=== PATIENT | female | born 1935 | race Caucasian/White ===

== ENCOUNTER 2019-10-07 19:25 | Inpatient (IN) | payer MEDICAID ==
[~2019-10-07] VITALS: Ht 154.9 cm; Wt 60.0 kg
[2019-10-07 19:40] VITALS: Ht 154.9 cm; Wt 60.0 kg
--- NOTE | 2019-10-07 19:56 | NUR ---
PT PRESENTS TO ED WITH C/O WOUND TO OUTSIDE OF L ANKLE. PT STATES THAT SHE HAS HAD THIS WOUND FOR APPROX 1 MONTH NOW. PT STATES THAT SHE WAS ON THE BUS AND SOMEONES PURSE FELL ON IT AND HAS HAD THE WOUND EVER SINCE. PT HAS GOLFBALL SIZED WOUND TO OUTSIDE OF L ANKLE. PT HAS YELLOW PUSS SEEN TO ANKLE WITH ALSO APPROX 2 CM OF DEPRESSION INTO WOUND. THERE IS ERYTHEMA NOTED TO THE CIRCUMFERENCE OF THE WOUND. PT SKIN IS NOT HOT, PT SKIN IS WNL BESIDES THE REDNESS AROUND THE WOUND AND DOWN TO THE DISTAL METATARSALS. PT DENIES ANY OTHER SXS HOWEVER JUST PAINFUL TO WALK ON. PT FAMILY WAS UNAWARE OF WOUND. PT DENIES DIABETES. PT AXO X4. PT SPEAKING IN CLEAR AND FULL SENTENCES. RESP E/U. PT AFEBRILE. NAD AT THIS TIME. FAMILY AT BEDSIDE
[2019-10-07] MEDS ORDERED: LEVOXYL0.088 MG PO (20:30)
[2019-10-07] MEDS ORDERED: HYDROCHLOROTH12.5 M2 PO (20:30)
--- NOTE | 2019-10-07 20:30 | NUR ---
PHOTO OF PT WOUND PLACED IN PT CHART AT THIS TIME
[2019-10-07] MEDS ORDERED: HYDROCHLOROTH12.5 M3 PO (20:31)
[2019-10-07] MEDS ORDERED: LOSARTAN POTASS25 M1 PO (20:35)
[2019-10-07 20:36] LABS: BASOPHIL % 0.8 % (0-2); PLATELET COUNT 243 x10^3mcL (130-400)
[2019-10-07 20:38] LABS: RED CELL DISTRIBUTION WIDTH 18.3 % (11.5-14.5)
[2019-10-07 20:48] LABS: CALCIUM 8.9 mg/dL (8.5-10.1); CARBON DIOXIDE 31.3 mmol/L (21-32); CHLORIDE SERUM 101 mmol/L (98-107); CREATININE SERUM 1.2 mg/dL (0.6-1.0); GLUCOSE SERUM 114 mg/dL (74-106); POTASSIUM SERUM 4.4 mmol/L (3.5-5.1); SODIUM SERUM 135 mmol/L (136-145)
[2019-10-07 20:53] LABS: ALBUMIN 3.4 g/dL (3.4-5.0); ALKALINE PHOSPHATASE 112 U/L (46-116); ALT/SGPT 19 U/L (14-59); AST/SGOT 16 U/L (15-37); BILIRUBIN TOTAL 0.5 mg/dL (0.20-1.00)
[2019-10-07 21:44] LABS: TOTAL PROTEIN, SERUM 7.1 g/dL (6.4-8.2)
--- NOTE | 2019-10-07 21:45 | NUR ---
PT ASSISTED TO RESTROOM VIA WHEELCHAIR BY ERT ENDY AT THIS TIME. NAD UPON TOILETING
--- NOTE | 2019-10-07 22:37 | NUR ---
REPORT CALLED TO SHERLYN GUERRIER. ALL QUESTIONS AND CONCERNS ADDRESSED AT THIS TIME
--- NOTE | 2019-10-07 22:38 | NUR ---
LAST NOTE MADE BY STEFANI TOLEDO RN
--- NOTE | 2019-10-07 22:59 | NUR ---
RECEIVED FROM ED,PUT IN ROOM 253 B AND MADE COMFORTABLE.FAMILY WITH HER,VALERI WILL ADMIT PATIENT,THANK YOU.REPORT FROM ER ALREADY TOOK PICTURE OF L ANKLE ALTERATION.CALL LIGHT IN REACH.
--- NOTE | 2019-10-07 23:19 | NUR ---
,MADE AWARE THAT BP HIGH ON ADMIT.DID NOT TAKE HER BP MEDS TODAY.
[2019-10-07 23:26] LABS: MAGNESIUM 2.2 mg/dL (1.8-2.4); PHOSPHOROUS 3.4 mg/dL (2.5-4.9)
[2019-10-07 23:29] VITALS: BP 177/113
[2019-10-07 23:48] LABS: FREE T4 1.04 ng/dL (0.76-1.46); FREE THYROXINE INDEX 2.9 ug/dL (1.4-4.5)
--- NOTE | 2019-10-07 23:50 | NUR ---
RECEIVED PT FROM ER, PT ADMIT FOR CELLULITIS LEFT LOWER EXTREMITY, DEHYDRATION. PT IS A/O X4, VERBAL RESPONSIVE, LUNG SOUND CLEAR BILATERAL, NO COUGH, NO SOB. PT DENY ANY CHEST PAIN OR DISCOMFORT, BOWEL SOUND PRESENT ALL 4 QUADRANTS, NO DISTENTION, NO TENDER. PEDAL PULSE PRESENT BOTH FEET, TRACE EDEMA BLE. THERE IS OPEN WOUND AT LEFT ANKLE. AND HEALING SCAB AT LEFT LOWER LEG. BLE RED DISCOLORATION. IV AT RIGHT AC, NO LEAKING, NO INFILTRATION. ALL ADLS ASSIST, ALL NEED MET, CALL LIGHT IN REACH, WILL CONTINUE TO MONITOR.
[2019-10-08] VITALS (7 sets, daily range): BP systolic 134–172; BP diastolic 59–106
[2019-10-08 00:58] LABS: T3 TOTAL 0.55 ng/mL
--- NOTE | 2019-10-08 02:47 | NUR ---
EKG FROM ER CRYSTAL MARTINEZ MADE AWARE AND NOTIFIED GINO ORDERED TELE 25 ASSIGNED.
--- NOTE | 2019-10-08 03:35 | NUR ---
BP STILL ELEVATED AT THIS TIME 155/100 MAP OF 104.WILL GIVE POPRESSOR ORDERED BY DR CHRISTIAN.TELE STILL AFIB 78.NO CHEST PAIN,DAUGHTER CLAIMED SHE DO NOT HAVE HX OF AFIB.CRYSTAL ALREADY AWARE.
--- NOTE | 2019-10-08 03:44 | NUR ---
MORE ORDERS NOTED AFTER PATIENT PUT ON TELE,AFIB.
--- NOTE | 2019-10-08 03:45 | NUR ---
PATIENT AND FAMILY CLAIMED THAT SHE IS NOT DIABETIC.
--- NOTE | 2019-10-08 04:00 | NUR ---
PATIENT HEART RATE LIZETH,AFIB.DOWN TO 40 PER SHERYL,CHECKED AT ONCE.AROUSED EASILY,WAS SOUND ASLEEP.UP TO 72 AT ONCE.PATIENT HAD BP MEDS EARLIER BP NOW 148/96.HEART RATE 72.WILL MONITOR PATIENT.
--- NOTE | 2019-10-08 04:39 | NUR ---
REMINDED LAB,THERE IS NO UA RESULT YET,URINE SENT A WHILE AGO AFTER ADMISSION.
[2019-10-08 04:41] LABS: microscopic required? NO
--- NOTE | 2019-10-08 05:08 | NUR ---
I AND O MEASURED.IVF NS AT 100 CC/ HOUR.ATB SCHEDULE WILL GIVE,NO INCIDENT AFTER FIRST DOSE GIVEN EARLIER.
[2019-10-08 05:13] LABS: urine erythrocyte NEGATIVE (NEGATIVE)
[2019-10-08 06:11] LABS: CALCIUM 8.6 mg/dL (8.5-10.1); CARBON DIOXIDE 31.1 mmol/L (21-32); CHLORIDE SERUM 102 mmol/L (98-107); GLUCOSE SERUM 94 mg/dL (74-106); MAGNESIUM 2.1 mg/dL (1.8-2.4); PHOSPHOROUS 3.3 mg/dL (2.5-4.9); SODIUM SERUM 138 mmol/L (136-145)
[2019-10-08 06:15] LABS: BASOPHIL % 0.5 % (0-2); PLATELET COUNT 233 x10^3mcL (130-400)
[2019-10-08 06:29] LABS: RED CELL DISTRIBUTION WIDTH 18.3 % (11.5-14.5)
--- NOTE | 2019-10-08 07:20 | NUR ---
RECEIVED PT'S REPORT FROM LEAVING NURSE. PT SEEN REST ON BED WITH HER DAUGHTER AT BEDSIDE. PT IS AA/O X 3, DENIED PAIN AT THIS TIME. PT BREATHING ON RA, EVEN, UNLABORED. L ANKLE RED, OPEN WOUND COVERED BY ISLAND DRESSING AT THIS TIME. RAC IV PATENT, INTACT, IVF IS INFUSING. PT AMBULATE WITH WALKER AND ASSIST. WILL CONTINUE PT'S CARE.
--- NOTE | 2019-10-08 09:32 | NUR ---
FLU AND PNA VACCINE GIVEN PER ORDER.
--- NOTE | 2019-10-08 10:16 | NUR ---
PODIATRIEST AT BEDSIDE ASSESSED PT'S WOUND AND PERFORMED DRESSING CHANGE.
--- NOTE | 2019-10-08 14:03 | NUR ---
MADE DR. GRIFFITH AWARE PT'S BP 172/106. NORVASAC 5MG IS GIVEN PER NEW ORDER TO MANAGE ELEVATED BP.
--- NOTE | 2019-10-08 14:42 | NUR ---
AFTER NORVASC 5MG GIVEN, RECHECKED PT'S BP 169/106. HR 90 BPM. PT DENIED RODRÍGUEZ. HYDRALAZINE 10MG PO GIVEN PER PRN ORDER SBP > 160.
--- NOTE | 2019-10-08 16:14 | NUR ---
RECHECK PT'S BP 148/86, HR 76. PT'S FAMILY MEMBERS AT BEDSIDE. PT NO COMPLAIN OF PAIN AT THIS TIME.
--- NOTE | 2019-10-08 20:00 | NUR ---
SHIFT REASSESSMENT DONE.PATIENT ALERT,MAINLY ITALIAN,NEEDS ANTICIPATED.3 FAMILY MEMBER AT BEDSIDE,SUPPORTIVE OF CARE.HEPLOCK INTACT,ATB SCHEDULED TONIGHT.NEW IV SITE FROM DAY SHIFT LFA.INTACT.CALL LIGHT IN REACH.
--- NOTE | 2019-10-08 22:35 | NUR ---
PATIENT PM MEDS GIVEN.ALSO GIVEN PAIN PILL A WHILE AGO.DAUGHTER STAYING FOR TONIGHT,SUPPORTIVE OF CARE.
--- NOTE | 2019-10-09 01:24 | NUR ---
PATIENT CALL FOR ASSISTANCE,DAUGHTER AT BEDSIDE.
--- NOTE | 2019-10-09 02:22 | NUR ---
PATIENT CHECKED AT INTERVALS FOR NEEDS AND SAFETY.
[2019-10-09 05:58] VITALS: BP 147/78
--- NOTE | 2019-10-09 05:59 | NUR ---
ASSISTED IN BSC,VOIDING MODERATE AMOUNT OF YELLOW URINE.GISSELLE GAVE AM CARE TO HER,PERICARE.HAS HER OLD UNDERWEAR,GISSELLE WILL GIVE HOSPITAL UNDERWEAR.NS FLUSH INTACT.ATB SCHEDULED.HEPLOCK INTACT LFA.
[2019-10-09 06:19] LABS: BASOPHIL % 0.5 % (0-2); PLATELET COUNT 184 x10^3mcL (130-400)
[2019-10-09 06:28] LABS: CALCIUM 8.3 mg/dL (8.5-10.1); CARBON DIOXIDE 28.1 mmol/L (21-32); CHLORIDE SERUM 99 mmol/L (98-107); GLUCOSE SERUM 87 mg/dL (74-106); MAGNESIUM 1.9 mg/dL (1.8-2.4); PHOSPHOROUS 2.9 mg/dL (2.5-4.9); POTASSIUM SERUM 3.8 mmol/L (3.5-5.1); SODIUM SERUM 134 mmol/L (136-145)
[2019-10-09 06:30] LABS: RED CELL DISTRIBUTION WIDTH 18.2 % (11.5-14.5)
[2019-10-09 08:02] VITALS: BP 153/89
--- NOTE | 2019-10-09 08:37 | NUR ---
AAO TIMES 4. TELE # 25 A FIB RATE 80'S. LUNGS CTA, DIMINISHED BASES. O2 SAT ON RA 94%. BS'S ACTIVE TIMES 4. COOPERATIVE. DRESSING TO LEFT FOOT CDI. TRACE EDEMA BLE. PEDAL PULSES WEAK. GOOD APPETITE.
[2019-10-09 11:59] VITALS: BP 150/84
[2019-10-09 16:16] VITALS: BP 133/60
--- NOTE | 2019-10-09 18:48 | NUR ---
AAO TIMES 4. FAMILY PRESENT, SUPPORTIVE. COOPERATIVE. NO C/O PAIN. NO SOB. IV SITE CDI. TELE # 25 A FIB. BRP/BSC ASSIST.
--- NOTE | 2019-10-09 19:32 | NUR ---
SHIFT REASSESSMENT DONE.PATIENT ALERT AND ORIENTED.MAINLY MALAY,NEEDS ANTICIPATED.FAMILY AT BEDSIDE,SUPPORTIVE OF CARE.IV FLUSH ONLY FOR ATB.BREATHING EASY.WALKER/ASSIST PRN.FALL PRECAUTION,TELE 25 AFIB,TROP NEGATIVE,HEPARIN SQ BID,TRACE EDEMA BLE.VENOUS US RESULT NEGATIVE.CALL LIGHT IN REACH.
--- NOTE | 2019-10-09 21:09 | NUR ---
HYDRALAZINE 10 MG BP 163/97.WILL RECHECKED IN 30 MINUTES.
[2019-10-09 21:47] VITALS: BP 138/87
--- NOTE | 2019-10-10 03:24 | NUR ---
PATIENT C/O LEG PAIN,GIVEN PAIN PILL AT 0234.HEPLOCK INTACT.WILL HAVE ATB AGAIN 6 AM SCHEDULE.
--- NOTE | 2019-10-10 05:31 | NUR ---
AM MED GIVEN ATB,ALSO THYROID MED WILL GIVE.IV SITE GOOD AND FLUSHES EASILY.
[2019-10-10 05:41] VITALS: BP 168/90
--- NOTE | 2019-10-10 05:59 | NUR ---
I AND O MEASURED.HEPLOCK INTACT.WILL ENDORSE TO NEXT SHIFT.
--- NOTE | 2019-10-10 06:25 | NUR ---
BP AT THIS TIME 168/98.WILL GIVE HYDRALAZINE.
[2019-10-10 06:43] LABS: BASOPHIL % 0.5 % (0-2); PLATELET COUNT 194 x10^3mcL (130-400)
--- NOTE | 2019-10-10 06:50 | NUR ---
PODIATRY AD OPERATIONS INTERN HERE.WILL DO TX MARTINE.PICTURE TAKEN.
--- NOTE | 2019-10-10 06:55 | NUR ---
PICTURE TAKEN.PUT IN CHART,PODIATRY DRESSED WOUND WITH RONNIE.
[2019-10-10 06:58] LABS: RED CELL DISTRIBUTION WIDTH 17.9 % (11.5-14.5)
[2019-10-10 07:12] VITALS: BP 156/71
[2019-10-10 07:21] LABS: CALCIUM 8.8 mg/dL (8.5-10.1); CARBON DIOXIDE 31.1 mmol/L (21-32); CHLORIDE SERUM 98 mmol/L (98-107); CREATININE SERUM 1.1 mg/dL (0.6-1.0); GLUCOSE SERUM 92 mg/dL (74-106); POTASSIUM SERUM 3.9 mmol/L (3.5-5.1); SODIUM SERUM 135 mmol/L (136-145)
--- NOTE | 2019-10-10 07:26 | NUR ---
BPO RECHECKED AFTER APRESOLINE 156/71.WILL ENDORSE TO CRYSTAL DOWNEY AWARE.
--- NOTE | 2019-10-10 07:46 | NUR ---
RECEIVED IN NO ACUTE RESP. DISTRESS. AWAKE, ALERT AND ORIENTED. EATING BREAKFAST. FAMILY AT BEDSIDE. NO C/O PAIN OR DISCOMFORT AT THIS TIME. DRESSING TO LLE CHANGED BY FIRE EQUIPMENT OPERATOR THIS AM, DRY AND INTACT. CALL LIGHT WITHIN REACH. WILL CONTINUE WITH PLAN OF CARE.
[2019-10-10 08:34] VITALS: BP 140/77
[2019-10-10 12:11] VITALS: BP 135/84
--- NOTE | 2019-10-10 15:05 | NUR ---
DR. KAN IN TO SEE PT, PLAN OF CARE DISCUSSSED WITH PT AND FAMILY. CONCERNS ADDRESSED.
--- NOTE | 2019-10-10 15:44 | NUR ---
Discount pharmacy card and list to low cost medical clinics given to patient by Artur.
[2019-10-10 16:36] VITALS: BP 122/64
--- NOTE | 2019-10-10 18:45 | NUR ---
PT REMAINS IN NO DISTRESS. AWAKE AND ALERT. NO C/O PAIN OR DISCOMFORT AT THIS TIME. NO CHANGES IN VS. FAMILY AT BEDSIDE. CALL LIGHT WITHIN REACH. WILL BE ENDORSED TO INCOMING SHIFT.
[2019-10-10 19:38] VITALS: BP 146/79
--- NOTE | 2019-10-10 20:20 | NUR ---
PT CURRENTLY RESTING IN BED, NO ACUTE DISTRESS. A/O X4. NO TELE, MED/SURG. DENIES CHEST PAIN. PULSES PALPABLE IN ALL EXTREMITIES, BLE TRACE EDEMA NOTED. LUNG SOUNDS CTA BILATERALLY, DENIES SOB. BOWEL SOUNDS ACTIVE, LAST BM 10/10/19. VOIDING WELL. GENERALIZED WEAKNESS, AMBULATORY WITH ASSIST. BLE SCABS, RONEY. LEFT ANKLE WOUND, DRESSING CHANGED BY PODIATRY CDI. PT STATES 5/10 LEFT ANKLE INTERMITTENT PAIN, REFUSING PAIN MEDICATION AT THIS TIME. IV PATENT AND INTACT. BED IN LOWEST POSITION, SIDE RAILS UP X2, CALL LIGHT WITHIN REACH. WILL CONTINUE TO MONITOR.
--- NOTE | 2019-10-10 23:16 | NUR ---
PT CURRENTLY RESTING IN BED, NO ACUTE DISTRESS. WILL CONTINUE TO MONITOR.
[2019-10-11 04:38] VITALS: BP 164/96
--- NOTE | 2019-10-11 06:42 | NUR ---
PT SLEPT PERIODICALLY THROUGHOUT NIGHT, NO ACUTE DISTRESS. ALL NEEDS MET AND ATTENDED TO. NO SIGNIFICANT CHANGES. IV PATENT AND INTACT. BED IN LOWEST POSITION, SIDE RAILS UP X2, CALL LIGHT WITHIN REACH. BP 164/96, MEDICATED PER EMAR. WILL ENDORSE CARE TO ONCOMING NURSE.
--- NOTE | 2019-10-11 07:15 | NUR ---
SEEN RESTING IN BED AAOX3. NO RESP DISTRESS NOTED. BREATHING E/U ON ROOM AIR. DAUGHTET AT BEDSIDE INTERPRETED FROM BELIZEAN TO FRISIAN. STATED MILD PAIN TO LLE ULCER, REFUSED PAIN MEDS OFFERRED. DSRG TO LEFT ANKLE NOTED CDI. BLE NOTED WITH DRY SCABS WITH DISCOLORATION. S/L TO LFA INTACT AND PATENT. CALL LIGHT PLACED WITHIN EASY REACH. SIDERAILS UP X2.
[2019-10-11 07:56] VITALS: BP 152/84
[2019-10-11 07:57] VITALS: BP 152/84
--- NOTE | 2019-10-11 08:04 | NUR ---
PHYSICAL THERAPY DAILY NOTES CO-SIGN All documentation done by the Parachute Inspector for 10/10/19 has been reviewed. I agree with the documentation. Reviewed/Co-Signed by: Debbi Conrad PT Documentation Done by:ADONAY JULIEN PTA
--- NOTE | 2019-10-11 08:22 | NUR ---
DENIES NAUSEA VOMITING, TOLERATED TO CARDIAC DIET WELL. AM SCHEDULED GIVEN.
--- NOTE | 2019-10-11 08:31 | NUR ---
DRIVE THRU ORDER TAKER STEFANI MCADAMS AT BEDSIDE FOR AM ROUND. PATIENT AND PATIENT'S DAUGHTER MADE AWARE OF CURRENT CONDITION AND PLAN OF CARE.
--- NOTE | 2019-10-11 10:39 | NUR ---
Initial Nutrition Assessment: 253/B SINGLE[place]LINDA HAQ IA HR Dx: Cellulitis L lower extremity, dehydration PMHx: HTN and hypothyroidism PSHx: None Labs: NA 135L, CREAT 1.1H Meds: Apresoline, aspirin, Colace, norco, Pepcid, synthyroid, vancomycin, Zofran, zosyn Diet: cardiac PO intake since admission: (10/10) breakfast 100%, (10/09) dinner, lunch 40%, breakfast 100%, (10/08) dinner 50%, breakfast 90% Ht: 154.94 cm (61") Wt: 60 kg (132#) BMI: 25 kg/m2 Bed scale: 132# IBW: 105# (48 kg) %IBW: 125 UBW: unable to access Age: 83/F Food Allergies: NKFA Skin: BLE scabs Tam: 21 Edema: BLE trace GI: Last BM: 10/10 Per H&P, Pt is a 83 yo F with PMH of HTN and hypothyroidism who came with cc of left leg pain since [address] Note (10/11): Patient was sleeping. Per RN Diandra, patient ate most of her breakfast this morning and does not have any N/V/D/C at this time. Patient had ulcer/ wound on leg. Problem with: N/V/D/C: none per RN Problems with: Chewing: Swallowing: none per RN Current appetite: unable to access Recent wt change: unable to access %wt change: n/a Vitamin/Supplement use: unable to access Special diet at home: unable to access Physical activity: unable to access Nutrition education given: not possible at this time Food-drug interactions: none Education given: n/a Estimated Nutritional Needs Based on current body weight (60 kg) Energy: 5026-4076 kcal/day (30-35 kcal/kg for geriatric maintenance, ulcer) Protein: 72-84 g/day (1.2-1.4 g/kg for leg ulcer healing) Fluid: 1744-5806 mL/day (1 mL/kcal) Nutrition Diagnosis: 1. Increased nutrient needs related to increased metabolic demands as evidenced by leg ulcer/ wound. Intervention 1. Recommend continuing cardiac diet. 2. Recommend ONS Ensure High protein. This will provide additional 320 kcal and 32 g protein. 3. Recommend Vitamin C and zinc for wound healing. Discussed with KAIN Turner. Monitor/Evaluate Goal: PO intake at least 75% of estimated needs Monitor: PO intake, Labs, GI function F/U in 2-3 days as high risk 10/13-
--- NOTE | 2019-10-11 11:25 | NUR ---
WOUND CARE EVALUATION NOTE: PT. SEEN AND HAS BEEN FOLLOW UP WITH DR. LUNDY IN [facility], PER DOCTOR'S NOTE " Will continue to perform daily dressing changes with Betadine, Adaptic, 4x4 gauze, Kerlix and GENNA. Possible switch to MediHoney. Dressing changes will be performed by podiatry. " WOUND CARE TEACHING GIVEN PER KAIN KO, REQUEST. CHEY CULLEN TRANSLATE IN [place], PT. VERBALIZES UNDERSTAND, ALSO, PRIMARY RN TO CONTINUE INSTRUCT PT. AND FAMILY FOR WOUND CARE. PER PT. HER DAUGHTER IS COMING THIS AFTERNOON AFTER WORK AND PRIMARY RN WILL FOLLOW UP WOUND CARE TEACHING.
[2019-10-11 12:08] VITALS: BP 131/79
--- NOTE | 2019-10-11 14:24 | NUR ---
SEEN WALKING ON THE HALLWAY USING WALKER ACCOMPANIED PHYSICAL THERAPISTS. NO ANY DISTRESS NOTED.
[2019-10-11 17:23] VITALS: BP 138/91
--- NOTE | 2019-10-11 17:54 | NUR ---
NO ANY DISTRESS THROUGHOUT SHIFT. STATED PAIN TO LLE ULCER TOLERABLE. DRSG TO LLE DRY/INTACT. USED BSC WITH ASSISTANCE. ALL NEEDS ATTENDED. S/L TO LFA INTACT AND PATENT. DAUGHTER STAYS AT BEDSIDE.
[2019-10-11 20:28] VITALS: BP 140/74
--- NOTE | 2019-10-11 22:13 | NUR ---
RECIEVED PT FROM PREVIOUS SHIFT NURSE. PT A0X4. RR EVEN AND UNLABORED, NO SIGNS OF ACUTE DISTRESS OR PAIN. IV RH PATENT AND CDI. BED IN LOWEST POSITION AND CALL LIGHT WITHIN REACH. WILL CONTINUE TO MONITOR. SON AT BED SIDE
--- NOTE | 2019-10-12 01:10 | NUR ---
PT RESTING IN BED. RR EVEN AND UNLABORED, NO SIGNS OF ACUTE DISTRESS. BED IN LOWEST POSITION AND CALL LIGHT WITHIN REACH. WILL CONTINUE TO MONITOR.
[2019-10-12 05:26] VITALS: BP 151/85
[2019-10-12 07:19] LABS: BASOPHIL % 1.2 % (0-2); PLATELET COUNT 202 x10^3mcL (130-400)
[2019-10-12 07:24] LABS: CALCIUM 9.2 mg/dL (8.5-10.1); CARBON DIOXIDE 31.9 mmol/L (21-32); CHLORIDE SERUM 98 mmol/L (98-107); CREATININE SERUM 1.1 mg/dL (0.6-1.0); GLUCOSE SERUM 85 mg/dL (74-106); POTASSIUM SERUM 3.8 mmol/L (3.5-5.1); SODIUM SERUM 135 mmol/L (136-145)
[2019-10-12 07:28] LABS: RED CELL DISTRIBUTION WIDTH 17.8 % (11.5-14.5)
--- NOTE | 2019-10-12 07:30 | NUR ---
PATIENT IS A&OX4, AND FOLLOWS COMMADNS WELL. MEDSURG PATIENT, DENIES CHEST PAIN. PERIPHERAL PULSES PALPABLE W/ TRACE EDEMA ON LLE. LUNG SOUNDS CTA BILATERALLY, ON RA, O2 SAT 93%. NORMAOCTIVE BSX4. VOIDS WELL. GENERALIZED WEAKNESS, BUT IS WORKING WITH PT. LEFT ANKLE DRESSING IS CDI. DENIES ANY PAIN OR DISCOMFORT AT THIS TIME. LFA IV SITE IS CDI. COOPERATES WELL, AND IS DANISH SPEAKING. DAUGHTER IS PRESENT AT THIS TIME.
[2019-10-12 08:56] VITALS: BP 135/72
[2019-10-12 12:45] VITALS: BP 129/95
[2019-10-12] MEDS ORDERED: CLEOCIN HCL300 MG PO (13:41)
[2019-10-12] MEDS ORDERED: XARELTO15 M1 PO (13:48)
[2019-10-12] MEDS ORDERED: NOR5 PO (13:55)
[2019-10-12 14:26] VITALS: BP 129/95
--- NOTE | 2019-10-12 15:55 | NUR ---
PATIENT HAS RECEIVED DISCAHRGE INSTRUCTIONS. PATIENT AND AFMILY VERBALIZE UNDERSTANDING OF PATIENT'S INSTRUCTIONS. ALL QUESTIONS AND CONCERNS HAVE BEEN ADDRESSED. IV CATHETER HAS BEEN DC. CATHETER IS INTACT. PATIENT DENIES ANY PAIN OR DISCOMFORT AT THIS TIME. PATIENT WILL BE DISCAHRGED VIA WHEELCHAIR WITH [employer] AND FAMILY.
== END 2019-10-12 16:13 | disposition home or self-care (01) | DRG 380 ==
LOC: ED 19:25 → MU 22:12 → DU 22:12 → MU 23:01 → DU 10-08 02:47 → MU 10-10 08:32
PROVIDERS: Emergency Medicine; Family Medicine; ADMIT Internal Medicine
DX: L97.321 Non-pressure chronic ulcer of left ankle limited to breakdown of skin (principal); N17.0 Acute kidney failure with tubular necrosis; L03.116 Cellulitis of left lower limb; E86.0 Dehydration; I48.91 Unspecified atrial fibrillation; E87.1 Hypo-osmolality and hyponatremia; I10 Essential (primary) hypertension; E03.9 Hypothyroidism, unspecified; B95.1 Streptococcus, group B, as the cause of diseases classified elsewhere; R73.03 Prediabetes; R29.6 Repeated falls; Z79.82 Long term (current) use of aspirin; Z68.24 Body mass index [BMI] 24.0-24.9, adult
CPT/HCPCS: 82962; 84439; 90658; 90732; 97110-GP; 97112-GP; 97116-GP; 97530-GP; G0378; J0295; J0690; J1644; J1885; J2543; J3370; J3490; J7030; Q0092